=== PATIENT | male | born 1985 | race African-American/Black ===

== ENCOUNTER 2017-07-25 16:13 | Inpatient (IN) | payer OTHER ==
[2017-07-25 18:55] VITALS: BMI 25.7
--- NOTE | 2017-07-25 20:39 | HP ---
CIWA Score - CIWA Score Nausea/Vomitin-No Nausea/No Vomiting Admission ROS BHS - HPI Chief Complaint: alcohol withdrawal symptoms Allergies/Adverse Reactions: Allergies Allergy/AdvReac Type Severity Reaction Status Date / Time No Known Allergies Allergy Verified 10/19/16 19:29 History of Present Illness: 31 years old male with a long history of alcohol dependence is admitted to detox. Patient has never been in detox and reports insignificant period of abstinence. He has medical has medical history of asthma and denies suicidal ideation at this time. Patient states, " My goal is to be successful in detoxing." Exam Limitations: No Limitations - Ebola screening Have you traveled outside of the country in the last 21 days: No Have you had contact with anyone from an Ebola affected area: No Have you been sick,other than usual withdrawal symptoms: No Do you have a fever: No - Review of Systems Constitutional: Loss of Appetite, Malaise, Night Sweats, Changes in sleep EENT: reports: Other (stigmatism) Respiratory: reports: No Symptoms reported Cardiac: reports: No Symptoms Reported Patient History - Patient Medical History Hx Asthma: Yes Hx Chronic Obstructive Pulmonary Disease (COPD): No Hx Cardiac Disorders: No Hx Hypertension: No Hx Seizures: No Hx Diabetes: No Hx Gastrointestinal Disorders: No Hx Genitourinary Disorders: No Hx Sexually Transmitted Disorders: No Hx Renal Disease (ESRD): No Hx Depression: No Hx Suicide Attempt: No Hx Schizophrenia: No - Patient Surgical History Past Surgical History: No Hx Neurologic Surgery: No Hx Cataract Extraction: No Hx Cardiac Surgery: No Hx Lung Surgery: No Hx Breast Surgery: No Hx Breast Biopsy: No Hx Abdominal Surgery: No Hx Appendectomy: No Hx Cholecystectomy: No Hx Genitourinary Surgery: No Hx Section: No Hx Orthopedic Surgery: No Anesthesia Reaction: No - PPD History Previous Implant?: No Documented Results: Negative w/o proof Implanted On Prior [facility] Admission?: No - Smoking Cessation Smoking history: Current some day smoker Aproximately how many cigarettes per day: 3 Hx Chewing Tobacco Use: No Initiated information on smoking cessation: Yes - Substances Abused Alcohol Route: Oral Frequency: Daily Amount used: 1 liter may Age of first use: 13 Date of Last Use: 07/25/17 PCP Route: Smoking Frequency: Daily Amount used: $60 Age of first use: 25 Date of Last Use: 07/24/17 thc Route: Smoking Frequency: Daily Amount used: $40 Age of first use: 17 Date of Last Use: 07/25/17 Admission Physical Exam BHS - Vital Signs Vital Signs: Vital Signs - 24 hr 07/25/17 18:50 Temperature 97.7 F Pulse Rate 87 Respiratory 18 Rate Blood Pressure 122/68 BHS Breath Alcohol Content Breath Alcohol Content: 0 Urine Drug Screen - Results Drug Screen Negative: No Urine Drug Screen Results: THC-Marijuana, FUENTES-Cocaine, PCP-Phencyclidine
--- NOTE | 2017-07-25 21:02 | HP ---
CIWA Score - CIWA Score Nausea/Vomitin-Mild Nausea/No Vomiting Muscle Tremors: 3 Anxiety: 3 Agitation: 3 Paroxysmal Sweats: 1-Minimal Palms Moist Orientation: 0-Oriented Tacttile Disturbances: 1-Very Mild Itch/Numbness Auditory Disturbances: 0-None Visual Disturbances: 0-None Headache: 1-Very Mild CIWA-Ar Total Score: 13 Admission ROS BHS - HPI Chief Complaint: withdrawal sx Allergies/Adverse Reactions: Allergies Allergy/AdvReac Type Severity Reaction Status Date / Time No Known Allergies Allergy Verified 10/19/16 19:29 History of Present Illness: 31 years old male with long history of alcohol nicotine dependence has asthma and bipolar ii is admtted to detox Exam Limitations: No Limitations - Ebola screening Have you traveled outside of the country in the last 21 days: No Have you had contact with anyone from an Ebola affected area: No Have you been sick,other than usual withdrawal symptoms: No Do you have a fever: No - Review of Systems Constitutional: Loss of Appetite, Changes in sleep, Unintentional Wgt. Loss, Unexplained wgt Loss EENT: reports: Blurred Vision (eye glasses) Respiratory: reports: SOB with Exertion, Productive cough (yellowish) Cardiac: reports: No Symptoms Reported GI: reports: Nausea, Poor Appetite, Poor Fluid Intake, Abdominal cramping : reports: No Symptoms Reported Musculoskeletal: reports: No Symptoms Reported Integumentary: reports: No Symptoms Reported Neuro: reports: No Symptoms reported Endocrine: reports: No Symptoms Reported Hematology: reports: No Symptoms Reported Psychiatric: reports: Judgement Intact, Orientated x3, Anxious, Depressed Other Systems: Reviewed and Negative Patient History - Patient Medical History Hx Anemia: No Hx Asthma: Yes Hx Chronic Obstructive Pulmonary Disease (COPD): No Hx Cancer: No Hx Cardiac Disorders: No Hx Congestive Heart Failure: No Hx Hypertension: No Hx Hypercholesterolemia: No Hx Pacemaker: No HX Cerebrovascular Accident: No Hx Seizures: No Hx Dementia: No Hx Diabetes: No Hx Gastrointestinal Disorders: No Hx Liver Disease: No Hx Genitourinary Disorders: No Hx Sexually Transmitted Disorders: No Hx Renal Disease (ESRD): No Hx Thyroid Disease: No Hx Human Immunodeficiency Virus (HIV): No Hx Hepatitis C: No Hx Depression: Yes Hx Suicide Attempt: No Hx Bipolar Disorder: No Hx Schizophrenia: No - Patient Surgical History Past Surgical History: No Hx Neurologic Surgery: No Hx Cataract Extraction: No Hx Cardiac Surgery: No Hx Lung Surgery: No Hx Breast Surgery: No Hx Breast Biopsy: No Hx Abdominal Surgery: No Hx Appendectomy: No Hx Cholecystectomy: No Hx Genitourinary Surgery: No Hx Orthopedic Surgery: No - PPD History Previous Implant?: Yes Documented Results: Negative w/o proof Implanted On Prior [facility] Admission?: No PPD to be Administered?: Yes - Smoking Cessation Smoking history: Current some day smoker Have you smoked in the past 12 months: Yes Aproximately how many cigarettes per day: 3 Cigars Per Day: 0 Hx Chewing Tobacco Use: No Initiated information on smoking cessation: Yes 'Breaking Loose' booklet given: 07/25/17 - Substance & Tx. History Hx Alcohol Use: Yes Hx Substance Use: Yes Substance Use Type: Alcohol, Marijuana Hx Substance Use Treatment: No - Substances Abused Alcohol Route: Oral Frequency: Daily Amount used: 1 liter may Age of first use: 13 Date of Last Use: 07/25/17 PCP Route: Smoking Frequency: Daily Amount used: $60 Age of first use: 25 Date of Last Use: 07/24/17 thc Route: Smoking Frequency: Daily Amount used: $40 Age of first use: 17 Date of Last Use: 07/25/17 Family Disease History - Family Disease History Family Disease History: Other: Father (no contact), Mother (no contact), Brother (no contact), Sister (no contact) Admission Physical Exam BHS - Vital Signs Vital Signs: Vital Signs - 24 hr 07/25/17 18:50 Temperature 97.7 F Pulse Rate 87 Respiratory 18 Rate Blood Pressure 122/68 - Physical General Appearance: Yes: Appropriately Dressed, Mild Distress, Thin, Tremorous, Irritable, Sweating, Anxious HEENTM: Yes: Hearing grossly Normal, Normal ENT Inspection, Normocephalic, Normal Voice Respiratory: Yes: Chest Non-Tender, No Respiratory Distress, No Accessory Muscle Use, Wheezing Neck: Yes: Supple, Trachea in good position Breast: Yes: Breasts Symetrical Cardiology: Yes: Regular Rhythm, Regular Rate, S1, S2 Abdominal: Yes: Normal Bowel Sounds, Non Tender, Soft Genitourinary: Yes: Within Normal Limits Back: Yes: Normal Inspection Musculoskeletal: Yes: full range of Motion, Gait Steady Extremities: Yes: Normal Inspection, Normal Range of Motion, Non-Tender, Tremors Neurological: Yes: Fully Oriented, Alert, Motor Strength 5/5, Normal Response, Depressed Affect Integumentary: Yes: Warm Lymphatic: Yes: Within Normal Limits - Diagnostic (1) Alcohol dependence with uncomplicated withdrawal Current Visit: Yes Status: Acute (2) Nicotine dependence Current Visit: Yes Status: Acute Qualifiers: Nicotine product type: cigarettes Substance use status: in withdrawal Qualified Code(s): F17.213 - Nicotine dependence, cigarettes, with withdrawal (3) Asthma Current Visit: Yes Status: Chronic Qualifiers: Asthma severity: mild Asthma persistence: intermittent Asthma complication type: with status asthmaticus Qualified Code(s): J45.22 - Mild intermittent asthma with status asthmaticus (4) Weight loss Current Visit: Yes Status: Acute (5) Bipolar II disorder Current Visit: Yes Status: Suspected Cleared for Admission BHS - Detox or Rehab [facility] Level of Care: Medically Managed Detox Regimen/Protocol: Librium Claeared for Rehab Admission: Yes BHS Breath Alcohol Content Breath Alcohol Content: 0 Vital Signs - Vital Signs Vital Signs Refused: No Temperature: 97.9 F Temperature Source: Oral Pulse Rate: 87 Respiratory Rate: 18 Blood Pressure: 122/68 BP Location: Left Arm Blood Pressure Position: Sitting - Height Height: 6 ft 2 in - Weight Weight: 200 lb Weight Measurement Method: Standing Scale Body Mass Index (BMI): 25.7 - Bowel Function Bowel Movement: Yes Urine Drug Screen - Control Is Test Valid: Yes - Results Drug Screen Negative: No Urine Drug Screen Results: THC-Marijuana, FUENTES-Cocaine, PCP-Phencyclidine Inpatient Rehab Admission - Initial Determination Are CD services needed?: Yes Free of communicable disease: Yes Not in need of hospitalization: Yes - Rehab Admission Criteria Previous failed treatment: Yes Poor recovery environment: Yes Comorbidities: Yes Lacks judgement: No Patient is meeting Inpatient Rehab admission criteria:: Yes
[2017-07-25] MEDS ORDERED: MAG HYDROX/AL HYDROX/SIMETH 30 ML UNIT-DOSE CUP PO PRN (21:08)
[2017-07-25] MEDS ORDERED: MAGNESIUM CITRATE 300 ML BOTTLE PO PRN (21:08)
[2017-07-25] MEDS ORDERED: MAGNESIUM HYDROX 2400MG/30ML ORAL SUSPENSION 30 ML CUP PO PRN (21:08)
[2017-07-25] MEDS ORDERED: P-EPHED 60MG/TRIPROLIDI 2.5MG TABLET PO PRN (21:08)
[2017-07-25] MEDS ORDERED: MENTHOL/PHENOL 1 EACH UD MM PRN (21:08)
[2017-07-25] MEDS ORDERED: chlordiazePOXIDE HCL 25 MG CAPSULE PO PRN (21:08)
[2017-07-25] MEDS ORDERED: guaiFENesin/D-METHORPHAN HB 10 ML UNIT-DOSE CUPS PO PRN (21:08)
[2017-07-25] MEDS ORDERED: LOPERAMIDE HCL 2 MG CAPSULE PO PRN (21:08)
[2017-07-25] MEDS ORDERED: ACETAMINOPHEN 325 MG TABLET (FP) PO PRN (21:08)
[2017-07-26] MEDS: chlordiazePOXIDE HCL 25 MG CAPSULE PO SCH ×5 (00:19→23:13)
[2017-07-26] MEDS: THIAMINE HCL 100 MG TABLET (FP) PO SCH ×2 (00:20→23:13)
[2017-07-26 02:34] LABS: URINE APPEARANCE CLEAR; URINE BILIRUBIN NEGATIVE (NEGATIVE); URINE BLOOD NEGATIVE (NEGATIVE); URINE COLOR YELLOW; URINE GLUCOSE (UA) NEGATIVE (NEGATIVE); URINE KETONE TRACE (NEGATIVE); URINE LEUK ESTERASE NEGATIVE (NEGATIVE); URINE NITRITE NEGATIVE (NEGATIVE); URINE PROTEIN NEGATIVE (NEGATIVE); URINE UROBILINOGEN NEGATIVE mg/dL (0.2-1.0)
--- NOTE | 2017-07-26 09:18 | EKG ---
Test Reason : Blood Pressure : / mmHG Vent. Rate : 089 BPM Atrial Rate : 089 BPM P-R Int : 142 ms QRS Dur : 090 ms QT Int : 366 ms P-R-T Axes : 071 082 052 degrees QTc Int : 445 ms NORMAL SINUS RHYTHM NORMAL ECG NO PREVIOUS ECGS AVAILABLE Confirmed by YUMIKO JONES MD ([id number]) on 07/26/2017 9:18:29 AM Referred By: Confirmed By:YUMIKO JONES MD
[2017-07-26 10:09] LABS: HEMATOCRIT 41.1 % (35.4-49); HEMOGLOBIN 12.3 GM/dL (11.7-16.9); MCH 21.8 pg (25.7-33.7); MEAN CELL VOLUME 72.6 fl (80-96); MEAN PLT VOLUME 9.9 fl (7.5-11.1); PLATELET COUNT 188 K/MM3 (134-434); RBC 5.66 M/mm3 (4.00-5.60); RDW 14.8 % (11.9-15.9); WHITE BLOOD COUNT 6.1 K/mm3 (4.0-10.0)
[2017-07-26 10:22] LABS: ADD RBC MORPHOLOGY YES
[2017-07-26 10:27] LABS: CHLORIDE 105 mmol/L (98-107); POTASSIUM 3.6 mmol/L (3.5-5.1); SODIUM 140 mmol/L (136-145)
[2017-07-26] MEDS: PRENATAL VITAMINS W/ FOLIC ACID TABLET (FP) PO SCH (10:39)
[2017-07-26 10:42] LABS: ALBUMIN 3.7 g/dl (3.4-5.0); ALK PHOS 43 U/L (45-117); ANION GAP 6 (8-16); BILIRUBIN,TOTAL 0.5 mg/dL (0.2-1.0); BLOOD UREA NITROGEN 15 mg/dL (7-18); CALCIUM 8.5 mg/dL (8.5-10.1); CO2 29 mmol/L (21-32); CREATININE 1.4 mg/dL (0.7-1.3); GLUCOSE,RANDOM 96 mg/dL (74-106); SGOT/AST 13 U/L (15-37); SGPT/ALT 16 U/L (12-78); TOT PROT 6.4 g/dl (6.4-8.2)
--- NOTE | 2017-07-26 11:13 | CONSULT ---
[facility] Psychiatric Consult - Data Date of interview: 07/26/17 Admission source: [facility] Identifying data: First admission to [facility] for this 31 y/o AA male seeking detox treatment on for cocaine,cannabis,alcohol and phencyclidine dependence.Patient is single,a father of one,domiciled and reportedly self- employed. Substance Abuse History: Confirmed by patient in this interview.Refer to the current [facility] report for details : Smoking history: Current some day smoker. Have you smoked in the past 12 months: Yes. Aproximately how many cigarettes per day: 3. Cigars Per Day: 0. Hx Chewing Tobacco Use: No. Initiated information on smoking cessation: Yes. 'Breaking Loose' booklet given: . - Substance & Tx. History. Hx Alcohol Use: Yes. Hx Substance Use: Yes. Substance Use Type: Alcohol, Marijuana. Hx Substance Use Treatment: No. - Substances Abused. Alcohol. Route: Oral. Frequency: Daily. Amount used: 1 liter mya. Age of first use: 13. Date of Last Use: 07/25/17. PCP. Route: Smoking. Frequency: Daily. Amount used: $60. Age of first use: 25. Date of Last Use: 07/24/17. thc. Route: Smoking. Frequency: Daily. Amount used: $40. Age of first use: 17. Date of Last Use: 07/25/17 Medical History: Bronchial asthma. Psychiatric History: Patient denies history of psychiatric hospitalizations.He admits to the diagnosis of Schizoaffective Disorder made by a private psychiatrist in [facility].Prescribed adderall and remeron (?).Mr Stroud " has no idea " about the respective doses and has no recall of last intake of these medications.No recent contact with provider as per self-report.Patient behaves as a hostile,argumentative and irritable historian." You are disrupting my rest. " No reported history of suicide attempts. Physical/Sexual Abuse/Trauma History: Not discussed in this interview.Patient declines. Additional Comment: Urine Drug Screen Results: THC-Marijuana, FUENTES-Cocaine, PCP- Phencyclidine.Noted. Mental Status Exam - Mental Status Exam Alert and Oriented to: Time, Place, Person Cognitive Function: Good Mood: Withdrawn, Irritable Affect: Mood Congruent Patient Behavior: Passive, Fatigued, Uncooperative Speech Pattern: Clear Voice Loudness: Normal Thought Process: Goal Oriented Thought Disorder: Not Present Hallucinations: Denies Suicidal Ideation: Denies Homicidal Ideation: Denies Insight/Judgement: Poor Sleep: Poorly, Difficulty falling asleep Appetite: Good Muscle strength/Tone: Normal Gait/Station: Normal Psychiatric Findings - Problem List ([place] 1, 2,3) (1) Alcohol dependence with uncomplicated withdrawal Status: Acute (2) Phencyclidine dependence Status: Chronic (3) Marijuana dependence Status: Chronic (4) Nicotine dependence Status: Chronic Qualifiers: Nicotine product type: cigarettes Substance use status: in withdrawal Qualified Code(s): F17.213 - Nicotine dependence, cigarettes, with withdrawal (5) Substance induced mood disorder Status: Acute (6) Insomnia Status: Acute - Initial Treatment Plan Initial Treatment Plan: Psychoeducation.Detoxification.Sleep hygiene recommended (rejected by patient).Ambien 10 mg po hs prn.Side effects/benefits discussed with patient.Agrees with this careplan.Observation.Medications reconciliation : NO known medications.Contact established (with verbal authorization of patient) with [facility] # [id number] at [phone] : no scripts for remeron or adderall / no visit since October 2016.
[2017-07-26] MEDS ORDERED: PNEUMOC 13-VAL CONJ-DIP CRM/PF 0.5 ML DISP.SYRIN IM ONE (12:00)
[2017-07-26] MEDS ORDERED: FLU VACCINE QUAD 60 MCG/0.5 ML (MDV 17-18) IM ONE (12:00)
[2017-07-26] MEDS ORDERED: PNEUMOCOCCAL 23 VACCINE 0.5 ML VIAL IM ONE (12:00)
--- NOTE | 2017-07-26 12:10 | PN ---
S CIWA - CIWA Score Nausea/Vomitin Muscle Tremors: 3 Anxiety: 3 Agitation: 2 Paroxysmal Sweats: 3 Orientation: 2-Disoriented Date<2 days Tacttile Disturbances: 1-Very Mild Itch/Numbness Auditory Disturbances: 2-Mild Harshness/Frighten Visual Disturbances: 0-None Headache: 0-None Present CIWA-Ar Total Score: 19 BHS Progress Note (SOAP) Subjective: Nausea, Sweating, Stomach Cramping, Tremors, Interrupted Sleep, Fatigue. Objective: PT. A & O X 2 (UNCERTAIN ABOUT DAY / DATE). PT. OBSERVED AMBULATING ON UNIT. NO ACUTE DISTRESS. 07/26/17 12:07 Vital Signs Temperature 97.0 F L 07/26/17 10:00 Pulse Rate 93 H 07/26/17 10:00 Respiratory Rate 20 07/26/17 10:00 Blood Pressure 125/83 07/26/17 10:00 O2 Sat by Pulse Oximetry (%) Laboratory Tests 07/25/17 07/26/17 07/26/17 23:45 07:00 07:00 WBC 6.1 RBC 5.66 H Hgb 12.3 Hct 41.1 MCV 72.6 L MCH 21.8 L MCHC 30.0 L RDW 14.8 Plt Count 188 MPV 9.9 Sodium 140 Potassium 3.6 Chloride 105 Carbon Dioxide 29 Anion Gap 6 L BUN 15 Creatinine 1.4 H Creat Clearance w eGFR 59.92 Random Glucose 96 Calcium 8.5 Total Bilirubin 0.5 AST 13 L ALT 16 Alkaline Phosphatase 43 L Total Protein 6.4 Albumin 3.7 Urine Color Yellow Urine Appearance Clear Urine pH 5.0 Ur Specific [place] 1.030 Urine Protein Negative Urine Glucose (UA) Negative Urine Ketones Trace H Urine Blood Negative Urine Nitrite Negative Urine Bilirubin Negative Urine Urobilinogen Negative Ur Leukocyte Esterase Negative RPR Titer 07/26/17 07:00 WBC RBC Hgb Hct MCV MCH MCHC RDW Plt Count MPV Sodium Potassium Chloride Carbon Dioxide Anion Gap BUN Creatinine Creat Clearance w eGFR Random Glucose Calcium Total Bilirubin AST ALT Alkaline Phosphatase Total Protein Albumin Urine Color Urine Appearance Urine pH Ur Specific [place] Urine Protein Urine Glucose (UA) Urine Ketones Urine Blood Urine Nitrite Urine Bilirubin Urine Urobilinogen Ur Leukocyte Esterase RPR Titer Nonreactive LABS NOTED. HIV AB RESULT PENDING. 07/26/17 12:09 Assessment: 07/26/17 12:08 WITHDRAWAL SYMPTOMS. Plan: CONTINUE DETOX. INCREASE DAILY PO FLUID INTAKE.
[2017-07-26 15:36] LABS: ANISOCYTOSIS 1+; MACROCYTOSIS 0
[2017-07-27] MEDS: chlordiazePOXIDE HCL 25 MG CAPSULE PO SCH ×3 (05:59→16:48)
[2017-07-27] MEDS: PRENATAL VITAMINS W/ FOLIC ACID TABLET (FP) PO SCH (10:33)
--- NOTE | 2017-07-27 17:06 | PN ---
S CIWA - CIWA Score Nausea/Vomitin Muscle Tremors: 2 Anxiety: 4-Mod. Anxious/Guarded Agitation: 2 Paroxysmal Sweats: 3 Orientation: 0-Oriented Tacttile Disturbances: 2-Mild Itch/Numbness/Burn Auditory Disturbances: 0-None Visual Disturbances: 2-Mild Sensitivity Headache: 0-None Present CIWA-Ar Total Score: 18 S Progress Note (SOAP) Subjective: Nausea, Sweating, Tremors, H/A, Anxious. Objective: PT. A & O X 3, OBSERVED AMBULATING ON UNIT. NO ACUTE DISTRESS. 07/27/17 17:07 Vital Signs Temperature 97.9 F 07/27/17 13:58 Pulse Rate 103 H 07/27/17 13:58 Respiratory Rate 19 07/27/17 13:58 Blood Pressure 104/61 07/27/17 13:58 O2 Sat by Pulse Oximetry (%) Laboratory Tests 07/25/17 07/26/17 07/26/17 23:45 07:00 07:00 WBC 6.1 RBC 5.66 H Hgb 12.3 Hct 41.1 MCV 72.6 L MCH 21.8 L MCHC 30.0 L RDW 14.8 Plt Count 188 MPV 9.9 Hypochromia 0 Polychromasia 0 Poikilocytosis 0 Anisocytosis 1+ Microcytosis 3+ Macrocytosis 0 Sodium 140 Potassium 3.6 Chloride 105 Carbon Dioxide 29 Anion Gap 6 L BUN 15 Creatinine 1.4 H Creat Clearance w eGFR 59.92 Random Glucose 96 Calcium 8.5 Total Bilirubin 0.5 AST 13 L ALT 16 Alkaline Phosphatase 43 L Total Protein 6.4 Albumin 3.7 Urine Color Yellow Urine Appearance Clear Urine pH 5.0 Ur Specific [place] 1.030 Urine Protein Negative Urine Glucose (UA) Negative Urine Ketones Trace H Urine Blood Negative Urine Nitrite Negative Urine Bilirubin Negative Urine Urobilinogen Negative Ur Leukocyte Esterase Negative RPR Titer HIV 1&2 Antibody Screen HIV P24 Antigen 07/26/17 07/26/17 07:00 10:30 WBC RBC Hgb Hct MCV MCH MCHC RDW Plt Count MPV Hypochromia Polychromasia Poikilocytosis Anisocytosis Microcytosis Macrocytosis Sodium Potassium Chloride Carbon Dioxide Anion Gap BUN Creatinine Creat Clearance w eGFR Random Glucose Calcium Total Bilirubin AST ALT Alkaline Phosphatase Total Protein Albumin Urine Color Urine Appearance Urine pH Ur Specific [place] Urine Protein Urine Glucose (UA) Urine Ketones Urine Blood Urine Nitrite Urine Bilirubin Urine Urobilinogen Ur Leukocyte Esterase RPR Titer Nonreactive HIV 1&2 Antibody Screen Negative HIV P24 Antigen Negative LABS NOTED. Assessment: 07/27/17 17:07 WITHDRAWAL SYMPTOMS. Plan: CONTINUE DETOX.
[2017-07-27] MEDS: chlordiazePOXIDE 5 MG CAPSULE PO SCH (21:11)
[2017-07-27] MEDS: IBUPROFEN 400 MG TABLET (FP) PO PRN (21:11)
[2017-07-27] MEDS: THIAMINE HCL 100 MG TABLET (FP) PO SCH (21:11)
[2017-07-27] MEDS: ZOLPIDEM TARTRATE 10 MG TABLET (PARK CARE ONLY) PO PRN (22:19)
[2017-07-28] MEDS: chlordiazePOXIDE 5 MG CAPSULE PO SCH ×3 (06:05→18:31)
[2017-07-28] MEDS: PRENATAL VITAMINS W/ FOLIC ACID TABLET (FP) PO SCH (10:14)
--- NOTE | 2017-07-28 16:43 | PN ---
BHS Progress Note (SOAP) Subjective: Diarrhea, headache, interrupted sleep Objective: 07/28/17 16:41 Last Vital Signs Temp Pulse Resp BP Pulse Ox 97 F L 103 H 18 125/70 07/28/17 13:53 07/28/17 13:53 07/28/17 13:53 07/28/17 13:53 Laboratory Tests 07/25/17 07/26/17 07/26/17 23:45 07:00 07:00 WBC 6.1 RBC 5.66 H Hgb 12.3 Hct 41.1 MCV 72.6 L MCH 21.8 L MCHC 30.0 L RDW 14.8 Plt Count 188 MPV 9.9 Hypochromia 0 Polychromasia 0 Poikilocytosis 0 Anisocytosis 1+ Microcytosis 3+ Macrocytosis 0 Sodium 140 Potassium 3.6 Chloride 105 Carbon Dioxide 29 Anion Gap 6 L BUN 15 Creatinine 1.4 H Creat Clearance w eGFR 59.92 Random Glucose 96 Calcium 8.5 Total Bilirubin 0.5 AST 13 L ALT 16 Alkaline Phosphatase 43 L Total Protein 6.4 Albumin 3.7 Urine Color Yellow Urine Appearance Clear Urine pH 5.0 Ur Specific [place] 1.030 Urine Protein Negative Urine Glucose (UA) Negative Urine Ketones Trace H Urine Blood Negative Urine Nitrite Negative Urine Bilirubin Negative Urine Urobilinogen Negative Ur Leukocyte Esterase Negative RPR Titer HIV 1&2 Antibody Screen HIV P24 Antigen 07/26/17 07/26/17 07:00 10:30 WBC RBC Hgb Hct MCV MCH MCHC RDW Plt Count MPV Hypochromia Polychromasia Poikilocytosis Anisocytosis Microcytosis Macrocytosis Sodium Potassium Chloride Carbon Dioxide Anion Gap BUN Creatinine Creat Clearance w eGFR Random Glucose Calcium Total Bilirubin AST ALT Alkaline Phosphatase Total Protein Albumin Urine Color Urine Appearance Urine pH Ur Specific [place] Urine Protein Urine Glucose (UA) Urine Ketones Urine Blood Urine Nitrite Urine Bilirubin Urine Urobilinogen Ur Leukocyte Esterase RPR Titer Nonreactive HIV 1&2 Antibody Screen Negative HIV P24 Antigen Negative Labs noted: serum creatinine 1.4 Assessment: 07/28/17 16:42 Withdrawal symptoms Noted with pre renal azotemia Plan: Continue detox Pre renal azotemia: encouraged to drink lots of water
[2017-07-28] MEDS: THIAMINE HCL 100 MG TABLET (FP) PO SCH (22:19)
[2017-07-28] MEDS: ZOLPIDEM TARTRATE 10 MG TABLET (PARK CARE ONLY) PO PRN (22:20)
[2017-07-28] MEDS: chlordiazePOXIDE HCL 10 MG CAPSULE PO SCH (22:20)
[2017-07-29] MEDS: IBUPROFEN 400 MG TABLET (FP) PO PRN (00:31)
[2017-07-29] MEDS: chlordiazePOXIDE HCL 10 MG CAPSULE PO SCH ×2 (05:54→12:23)
[2017-07-29 09:37] VITALS: BP 106/79; PULSE 90; TEMP 96.6
[2017-07-29] MEDS: PRENATAL VITAMINS W/ FOLIC ACID TABLET (FP) PO SCH (10:02)
--- NOTE | 2017-07-29 12:13 | DS ---
[facility] Detox Discharge Summary Admission Date: 07/25/17 Discharge Date: 07/29/17 - History Present History: Alcohol Dependence, Cannabis Dependence, Pcp Dependence Pertinent Past History: Asthma - Physical Exam Results Vital Signs: Vital Signs Temperature 96.6 F L 07/29/17 09:36 Pulse Rate 90 07/29/17 09:36 Respiratory Rate 20 07/29/17 09:36 Blood Pressure 106/79 07/29/17 09:36 O2 Sat by Pulse Oximetry (%) Pertinent Admission Physical Exam Findings: Withdrawal symptoms Laboratory Tests 07/25/17 07/26/17 07/26/17 23:45 07:00 07:00 WBC 6.1 RBC 5.66 H Hgb 12.3 Hct 41.1 MCV 72.6 L MCH 21.8 L MCHC 30.0 L RDW 14.8 Plt Count 188 MPV 9.9 Hypochromia 0 Polychromasia 0 Poikilocytosis 0 Anisocytosis 1+ Microcytosis 3+ Macrocytosis 0 Sodium 140 Potassium 3.6 Chloride 105 Carbon Dioxide 29 Anion Gap 6 L BUN 15 Creatinine 1.4 H Creat Clearance w eGFR 59.92 Random Glucose 96 Calcium 8.5 Total Bilirubin 0.5 AST 13 L ALT 16 Alkaline Phosphatase 43 L Total Protein 6.4 Albumin 3.7 Urine Color Yellow Urine Appearance Clear Urine pH 5.0 Ur Specific [place] 1.030 Urine Protein Negative Urine Glucose (UA) Negative Urine Ketones Trace H Urine Blood Negative Urine Nitrite Negative Urine Bilirubin Negative Urine Urobilinogen Negative Ur Leukocyte Esterase Negative RPR Titer HIV 1&2 Antibody Screen HIV P24 Antigen 07/26/17 07/26/17 07:00 10:30 WBC RBC Hgb Hct MCV MCH MCHC RDW Plt Count MPV Hypochromia Polychromasia Poikilocytosis Anisocytosis Microcytosis Macrocytosis Sodium Potassium Chloride Carbon Dioxide Anion Gap BUN Creatinine Creat Clearance w eGFR Random Glucose Calcium Total Bilirubin AST ALT Alkaline Phosphatase Total Protein Albumin Urine Color Urine Appearance Urine pH Ur Specific [place] Urine Protein Urine Glucose (UA) Urine Ketones Urine Blood Urine Nitrite Urine Bilirubin Urine Urobilinogen Ur Leukocyte Esterase RPR Titer Nonreactive HIV 1&2 Antibody Screen Negative HIV P24 Antigen Negative Labs noted - Treatment Hospital Course: Detox Protocol Followed, Detoxed Safely, Responded well, Discharged Condition Good - Medication Discharge Medications: Ambulatory Orders NK [No Known Home Medication] 07/25/17 - Diagnosis (1) Prerenal azotemia Current Visit: Yes Status: Acute (2) Depression Current Visit: Yes Status: Chronic (3) Alcohol dependence with uncomplicated withdrawal Current Visit: Yes Status: Acute (4) Marijuana dependence Current Visit: Yes Status: Chronic (5) Nicotine dependence Current Visit: Yes Status: Chronic Qualifiers: Nicotine product type: cigarettes Substance use status: in withdrawal Qualified Code(s): F17.213 - Nicotine dependence, cigarettes, with withdrawal (6) Phencyclidine dependence Current Visit: Yes Status: Chronic (7) Asthma Current Visit: Yes Status: Chronic Qualifiers: Asthma severity: mild Asthma persistence: intermittent Asthma complication type: with status asthmaticus Qualified Code(s): J45.22 - Mild intermittent asthma with status asthmaticus (8) Bipolar II disorder Current Visit: Yes Status: Chronic - AMA Did Patient Leave Against Medical Advice: No (F/U with PCP in 1-2 weeks or sooner if warranted)
== END 2017-07-29 12:30 | disposition other institution (70) | DRG 775 ==
LOC: YASAS 16:13 → Y3N 20:19
PROVIDERS: ADMIT Internal Medicine; ATTEND Internal Medicine
PROC: HZ2ZZZZ Detoxification Services for Substance Abuse Treatment (ICD-10-PCS; principal; 2017-07-25)
DX: F10.230 Alcohol dependence with withdrawal, uncomplicated (principal); F12.20 Cannabis dependence, uncomplicated; F16.20 Hallucinogen dependence, uncomplicated; F17.213 Nicotine dependence, cigarettes, with withdrawal; F31.81 Bipolar II disorder; R79.89 Other specified abnormal findings of blood chemistry; J45.22 Mild intermittent asthma with status asthmaticus; G47.00 Insomnia, unspecified; R63.4 Abnormal weight loss; Z68.25 Body mass index [BMI] 25.0-25.9, adult
CPT/HCPCS: 36415; 80053; 81003; 85027; 86593; 87389; 90688; 90732; 93005; 93010; G0008; G0009

== ENCOUNTER 2017-07-29 12:34 | Inpatient (IN) | payer OTHER ==
--- NOTE | 2017-07-29 14:11 | HP ---
Psychiatrist Admission - Data Date of interview: 07/29/17 Admission source: 3N Identifying data: This is the first [facility] admission for this 31 years old single Black male, father of a 6 years old son, self-employed, domiciled. Medical History: Significant for bronchial asthma and scoliosis. Smokes 3 cigarettes daily Psychiatric History: Patient is irritable, superficially coopererative in providing information claiming that he needs to sleep. Reports that he has been seeing psychiatrist since the age of 11. Reports that he is diagnosed with ADHD and Bipolar Disorder. Reports history of 2 previous psychiatric hospitalizations both in [place] as a child. Denies receiving psychiatric outpatent services currently. Claims last time he saw a psychiatrist was a year ago. He said that he caught a charge and he was given the alternative either to see a psychiatrist or to go to long-term. Claims he chose to see a psychiatrist somewhere in [facility] and was prescribed Adderal. Reports that in the past , he has been on Abilify, Depakote, Risperdal, Zoloft, Adderal. Denies history of previous suicidal attempt. At present, reports feeling aggravated and sleeping poorly Allergies/Adverse Reactions: Allergies Allergy/AdvReac Type Severity Reaction Status Date / Time No Known Allergies Allergy Verified 10/19/16 19:29 Date of last physical exam: 07/25/17 Concur with the findings of this exam: Yes - Substance Abuse/Tx History Hx Alcohol Use: Yes Hx Substance Use: Yes Substance Use Type: Alcohol (Started drinking felice at age 13, consumes one liter daily. Last drank on 07/25/17), Marijuana (Started smoking marijuana at age 17, consumes $40 worth daily. Last Smoked on 07/25/17) Hx Substance Use Treatment: Yes (Began smokink pcp at 25, consumes $60 worth daily. Last smoked on 07/24/17) Mental Status Exam - Mental Status Exam Alert and Oriented to: Time, Place, Person Cognitive Function: Fair Patient Appearance: Well Groomed Mood: Irritable Affect: Appropriate Speech Pattern: Clear Voice Loudness: Normal Thought Process: Intact Thought Disorder: Not Present Hallucinations: Denies Suicidal Ideation: Denies Homicidal Ideation: Denies Insight/Judgement: Fair Sleep: Poorly Appetite: Good Muscle strength/Tone: Normal Gait/Station: Normal Psychiatric Findings - Problem List ([place] 1, 2,3) (1) Alcohol dependence Current Visit: Yes Status: Acute (2) Cannabis dependence Current Visit: Yes Status: Acute (3) Phencyclidine dependence Current Visit: Yes Status: Acute (4) Nicotine dependence Current Visit: No Status: Chronic Qualifiers: Nicotine product type: cigarettes Substance use status: in withdrawal Qualified Code(s): F17.213 - Nicotine dependence, cigarettes, with withdrawal (5) ADHD (attention deficit hyperactivity disorder) Current Visit: Yes Status: Chronic (6) Bipolar disorder Current Visit: Yes Status: Chronic (7) Asthma Current Visit: No Status: Chronic Qualifiers: Asthma severity: mild Asthma persistence: intermittent Asthma complication type: with status asthmaticus Qualified Code(s): J45.22 - Mild intermittent asthma with status asthmaticus (8) Scoliosis Current Visit: Yes Status: Acute - Initial Treatment Plan Initial Treatment Plan: 1) Start Belsomra 10 mg po HS prn for insomnia. 2) Monitor progress
[2017-07-29] MEDS ORDERED: LOPERAMIDE HCL 2 MG CAPSULE PO PRN (16:16)
[2017-07-29] MEDS ORDERED: MAGNESIUM HYDROX 2400MG/30ML ORAL SUSPENSION 30 ML CUP PO PRN (16:16)
[2017-07-29] MEDS ORDERED: MENTHOL/PHENOL 1 EACH UD MM PRN (16:16)
[2017-07-29] MEDS ORDERED: NICOTINE POLACRILEX 2 MG GUM BUC PRN (16:16)
[2017-07-29] MEDS ORDERED: P-EPHED 60MG/TRIPROLIDI 2.5MG TABLET PO PRN (16:16)
[2017-07-29] MEDS ORDERED: MAGNESIUM CITRATE 300 ML BOTTLE PO PRN (16:16)
[2017-07-29] MEDS ORDERED: guaiFENesin/D-METHORPHAN HB 10 ML UNIT-DOSE CUPS PO PRN (16:16)
[2017-07-29] MEDS ORDERED: IBUPROFEN 400 MG TABLET (FP) PO PRN (16:16)
[2017-07-29] MEDS ORDERED: MAG HYDROX/AL HYDROX/SIMETH 30 ML UNIT-DOSE CUP PO PRN (16:16)
--- NOTE | 2017-07-29 16:16 | HP ---
[facility] Rehab Assess/Revision - Admission History Admitted to Rehab from: [facility] Date of Admission to Rehab: 07/29/2017 - Vital signs Vital Signs: as per chart - Findings Detox History & Physical reviewed: Yes Concur with findings: Yes Inpatient Rehab Admission - Initial Determination Are CD services needed?: Yes Free of communicable disease: Yes Not in need of hospitalization: Yes - Rehab Admission Criteria Comorbidities: Yes Patient is meeting Inpatient Rehab admission criteria:: Yes
[2017-07-29] MEDS ORDERED: ALBUTEROL SO4 18 GM HFA INHALER IH PRN (16:17)
[2017-07-29] MEDS: THIAMINE HCL 100 MG TABLET (FP) PO SCH (21:15)
[2017-07-29] MEDS: hydrOXYzine PAMOATE 50 MG CAPSULE (FP) PO PRN (21:15)
[2017-07-29] MEDS ORDERED: SUVOREXANT 10 MG TABLET PO PRN (22:00)
[2017-07-30] MEDS: NICOTINE 14 MG/24 HOURS TOPICAL PATCH TD SCH (10:38)
[2017-07-30] MEDS: PRENATAL VITAMINS W/ FOLIC ACID TABLET (FP) PO SCH (10:38)
[2017-07-30] MEDS: THIAMINE HCL 100 MG TABLET (FP) PO SCH (21:53)
[2017-07-30] MEDS: hydrOXYzine PAMOATE 50 MG CAPSULE (FP) PO PRN (22:16)
[2017-07-31] MEDS: NICOTINE 14 MG/24 HOURS TOPICAL PATCH TD SCH ×2 (10:14→11:00)
[2017-07-31] MEDS: PRENATAL VITAMINS W/ FOLIC ACID TABLET (FP) PO SCH ×2 (10:14→10:58)
[2017-07-31] MEDS: THIAMINE HCL 100 MG TABLET (FP) PO SCH (22:15)
[2017-08-01] MEDS: hydrOXYzine PAMOATE 50 MG CAPSULE (FP) PO PRN ×2 (01:44→22:02)
[2017-08-01] MEDS: NICOTINE 14 MG/24 HOURS TOPICAL PATCH TD SCH (10:05)
[2017-08-01] MEDS: PRENATAL VITAMINS W/ FOLIC ACID TABLET (FP) PO SCH (10:05)
[2017-08-01] MEDS: ACETAMINOPHEN 325 MG TABLET (FP) PO PRN (10:06)
[2017-08-01] MEDS: THIAMINE HCL 100 MG TABLET (FP) PO SCH (22:01)
[2017-08-02] MEDS: PRENATAL VITAMINS W/ FOLIC ACID TABLET (FP) PO SCH (10:12)
[2017-08-02] MEDS: NICOTINE 14 MG/24 HOURS TOPICAL PATCH TD SCH (10:12)
[2017-08-02] MEDS: THIAMINE HCL 100 MG TABLET (FP) PO SCH (21:42)
[2017-08-02] MEDS: hydrOXYzine PAMOATE 50 MG CAPSULE (FP) PO PRN (21:42)
[2017-08-02] MEDS: ACETAMINOPHEN 325 MG TABLET (FP) PO PRN (23:42)
[2017-08-03 06:35] VITALS: BP 110/62; PULSE 75; TEMP 97.8
[2017-08-03] MEDS: PRENATAL VITAMINS W/ FOLIC ACID TABLET (FP) PO SCH (09:46)
[2017-08-03] MEDS: NICOTINE 14 MG/24 HOURS TOPICAL PATCH TD SCH (09:46)
== END 2017-08-03 18:50 | disposition left against medical advice (07) | DRG 770 ==
LOC: YASAS 12:34 → Y3W 12:35
PROVIDERS: ADMIT Psychiatry & Neurology Psychiatry; ATTEND Psychiatry & Neurology Psychiatry
PROC: HZ42ZZZ Group Counseling for Substance Abuse Treatment, Cognitive-Behavioral (ICD-10-PCS; principal; 2017-07-29)
DX: F10.20 Alcohol dependence, uncomplicated (principal); F16.20 Hallucinogen dependence, uncomplicated; F12.20 Cannabis dependence, uncomplicated; F17.213 Nicotine dependence, cigarettes, with withdrawal; F90.9 Attention-deficit hyperactivity disorder, unspecified type; F31.9 Bipolar disorder, unspecified; J45.22 Mild intermittent asthma with status asthmaticus; M41.9 Scoliosis, unspecified

== ENCOUNTER 2017-08-16 18:59 | Emergency (ER) | payer OTHER ==
[2017-08-16 19:05] VITALS: BP 119/59; PULSE 62; TEMP 98; BMI 21.8
[2017-08-16] MEDS ORDERED: TETANUS AND DIPHTHERIA TOXOID 0.5 ML DISP.SYRIN IM ONE (19:08)
--- NOTE | 2017-08-16 19:08 | PDOC ---
Rapid Medical Evaluation Chief Complaint: Bite Time Seen by Provider: 08/16/17 19:06 Medical Evaluation: Allergies Allergy/AdvReac Type Severity Reaction Status Date / Time No Known Allergies Allergy Verified 08/16/17 19:02 Vital Signs Temp Pulse Resp BP Pulse Ox 98.0 F 62 18 119/59 100 08/16/17 19:03 08/16/17 19:03 08/16/17 19:03 08/16/17 19:03 08/16/17 19:03 08/16/17 19:07 I have performed a brief in-person evaluation of this patient. The patient presents with a chief complaint of: bit by stray dog to Right hand. PT IS UNCOOPERATIVE Pertinent physical exam findings: I have ordered the following:tetanus booster The patient will proceed to the ED for further evaluation.
--- NOTE | 2017-08-16 20:21 | PDOC ---
History of Present Illness - General Chief Complaint: Bite Stated Complaint: DOG BITE Time Seen by Provider: 08/16/17 19:06 History Source: Patient Exam Limitations: No Limitations - History of Present Illness Initial Comments: CHIEF COMPLAINT: 31 y/o afebrile male c/o dog bite to right hand HISTORY OF PRESENT ILLNESS: The patient was petting his neighbor's pitbull when the dog suddenly bit his hand. He does not trust the neighbor and does not know if the dog is UTD on rabies vaccinations. Vital signs on arrival are within normal limits. REVIEW OF SYSTEMS: GENERAL/CONSTITUTIONAL: No fever/chills. No weakness. No weight change. MUSCULOSKELETAL: No joint or muscle swelling or pain. No neck or back pain. SKIN: +dog bit to right hand NEUROLOGIC: No headache, vertigo, loss of consciousness, or loss of sensation. PHYSICAL EXAM: GENERAL: The patient is awake, alert, and fully oriented, in no acute distress. EXTREMITIES: Normal range of motion. Puncture wound to dorsal surface of right hand that is actively bleeding. Small open linear abrasion to interdigital space between first and second digits of right hand. NEUROLOGICAL: Normal speech, normal gait. PSYCH: Normal mood, normal affect. SKIN: Warm, Dry, normal turgor, no rashes or lesions noted. Past History - Past Medical History Allergies/Adverse Reactions: Allergies Allergy/AdvReac Type Severity Reaction Status Date / Time No Known Allergies Allergy Verified 08/16/17 19:02 Home Medications: Ambulatory Orders Amox-Tr/K Cl [Augmentin - 875Mg Tablet] 1 tab PO BID #20 tablet 08/16/17 Naproxen 500 mg PO BID #10 tablet 08/16/17 Anemia: No Asthma: Yes Cancer: No Cardiac Disorders: No CVA: No COPD: No CHF: No DVT: No Dementia: No Diabetes: No GI Disorders: No Disorders: No HTN: No Hypercholesterolemia: No Kidney Stones: No Liver Disease: No Seizures: No Thyroid Disease: No - Surgical History Abdominal Surgery: No Appendectomy: No Cardiac Surgery: No Cholecystectomy: No Lung Surgery: No Neurologic Surgery: No Orthopedic Surgery: No - Reproductive History Testicular Surgery: No - Immunization History Immunization Up to Date: Yes - Suicide/Smoking/Psychosocial Hx Smoking Status: Yes Smoking History: Never smoked Have you smoked in the past 12 months: Yes Number of Cigarettes Smoked Daily: 3 Cigars Per Day: 0 Information on smoking cessation initiated: Yes 'Breaking Loose' booklet given: 07/25/17 Hx Alcohol Use: Yes Drug/Substance Use Hx: Yes Substance Use Type: Alcohol, Marijuana Hx Substance Use Treatment: Yes (Began smokink pcp at 25, consumes $60 worth daily. Last smoked on 07/24/17) *Physical Exam - Vital Signs Last Vital Signs Temp Pulse Resp BP Pulse Ox 98.0 F 62 18 119/59 100 08/16/17 19:03 08/16/17 19:03 08/16/17 19:03 08/16/17 19:03 08/16/17 19:03 Medical Decision Making - Medical Decision Making A/P: 31 y/o male with dog bite. Rabies status of dog unknown. Pt is UTD on tetanus. Plan is as follows: 1. Rabies vaccine 2. Rabies immunoglobulin 3. PO augmentin 4. PO naproxen The patient was advised to return on days 3, 7, 14 and 28 for full serious of rabies vaccines. Instructed him to take augmentin as prescribed, keep wound clean and return to the ER with any worsening or concerning symptoms. The patient verbalizes understanding of all instructions, has no further questions and is awaiting discharge. *DC/Admit/Observation/Transfer Diagnosis at time of Disposition: Dog bite of extremity - Discharge Dispostion Disposition: HOME Condition at time of disposition: Good - Prescriptions Prescriptions: Amox-Tr/K Cl [Augmentin - 875Mg Tablet] 1 tab PO BID #20 tablet Naproxen 500 mg PO BID #10 tablet - Referrals - Patient Instructions Printed Discharge Instructions: How to Care for a Domestic Animal Bite Additional Instructions: Discharge Instructions: -Take antibiotics as prescribed -Take Naproxen for pain with food if needed as prescribed -Ice your hand -Keep your wounds clean -Return to the ER on days 3, 7, 14 and 28 for full rabies vaccination series ( Saturday 08/19, Wednesday 08/23, Wednesday 08/30 and Wednesday 09/13) - Post Discharge Activity
[2017-08-16] MEDS ORDERED: RABIES VACCINE (PCEC)/PF 2.5 UNIT/VIAL IM ONE (20:22)
[2017-08-16] MEDS ORDERED: RABIES IMMUNE GLOBULIN 300 UNITS/2 ML VIAL IM ONE (20:22)
[2017-08-16] MEDS ORDERED: NAPROXEN 500 MG TABLET (FP) PO ONE (20:23)
[2017-08-16] MEDS ORDERED: AMOX TR/POT CLAV 875MG/125MG TABLETS (FP) PO ONE (20:23)
[2017-08-16] MEDS ORDERED: NAPROXEN 500 MG TABLET (FP) ONE (20:31)
[2017-08-16] MEDS ORDERED: AMOX TR/POT CLAV 875MG/125MG TABLETS (FP) ONE (20:31)
[2017-08-16] MEDS ORDERED: RABIES IMMUNE GLOBULIN 300 UNITS/2 ML VIAL ONE (20:31)
== END 2017-08-16 21:18 | disposition home or self-care (01) ==
LOC: JERFT 18:59
PROC: 3E0234Z Introduction of Serum, Toxoid and Vaccine into Muscle, Percutaneous Approach (ICD-10-PCS; principal; 2017-08-16)
PROC: 3E0234Z Introduction of Serum, Toxoid and Vaccine into Muscle, Percutaneous Approach (ICD-10-PCS; 2017-08-16)
DX: S61.451A Open bite of right hand, initial encounter (principal); W54.0XXA Bitten by dog, initial encounter; Y93.K9 Activity, other involving animal care; Y92.038 Other place in apartment as the place of occurrence of the external cause; Y99.8 Other external cause status
CPT/HCPCS: 90375; 90471; 90675; 96372; 99281-25

== ENCOUNTER 2019-10-03 14:28 | Observation (INO) | payer OTHER ==
--- NOTE | 2019-10-03 14:58 | PDOC ---
History of Present Illness - General Stated Complaint: FALL Time Seen by Provider: 10/03/19 14:58 History Source: Patient Exam Limitations: No Limitations - History of Present Illness Initial Comments: 34 year old male with PMH ADHD, DVT, bipolar disorder (off meds x1 month), asthma, scoliosis, marijuana use presented to ED for syncopal episode occurring x2 hours ago, BIBA. Pt reported he was walking down the street with his fiance, and suddenly syncopized, falling to the right onto a metal fence. The event was witnessed by the fiance, who reported he was not conscious for 5-8 minutes. Pt reported he awoke in the ambulance. Pt admitted to headache. Pt denied nausea, vomiting, chest pain, shortness of breath, abdominal pain, back pain, upper or lower extremity pain, visual changes, seizures, tremors. Pt denied drug use today, but reported he does intermittently smoke marijuana, he reported he does not believe today's symptoms are related to marijuana use. Pt denied hx of PE, surgery<4 weeks, active malignancy<6 months, hormone use, hemoptysis, travel> hours. Chart review revealed pt has history of PCP and ETOH abuse, but has not used either since 2017. ROS General: denied fever, chills, generalized weakness. HEENT: denied sore throat, rhinorrhea, ear pain. Cardiovascular: admitted to syncope. denied chest pain, palpitations, diaphoresis. Respiratory: denied shortness of breath, cough, sputum production, hemoptysis. Gastrointestinal: denied abdominal pain, nausea, vomiting, diarrhea, constipation, blood in stool. Genitourinary: denied dysuria, increased urinary frequency, hematuria, urinary incontinence, flank pain. Back: denied back pain. Musculoskeletal: denied joint pain, muscle pain, joint swelling. Neurological: denied headache, dizziness, numbness, tingling, weakness. Integumentary: denied rash, laceration, abrasion. Hematologic/Lymphatic: denied bruising or bleeding. PE Constitutional: Well-nourished, Well-developed, appearing stated age. Airway: intact Breathing: bilateral breath sounds Circulation: 2+ carotid pulse B/L HEENT: head is normocephalic, atraumatic. no scalp hematoma. no scalp laceration. right lower jaw bone tenderness to palpation. No torres sign. No raccoon eyes. EOMI. PERRLA. Neck: supple. Full ROM. no midline c-spine tenderness to palpation. No step offs. Cardiovascular: regular heart rhythm. no murmurs. no pericardial friction rub. Chest wall: No tenderness to palpation of anterior chest wall. No deformity to anterior chest wall. Respiratory: clear to auscultation bilaterally. no crackles, rhonchi or wheezing. no stridor. Gastrointestinal: soft, nontender. normal bowel sounds. no rebound, guarding, masses. No ecchymoses. Back: no midline T-spine or L-spine tenderness to palpation. No step offs. Pelvis: lower extremities equal in length without external rotation. No hip tenderness to palpation. Extremities: peripheral pulses intact. no lower extremity edema. Neurological: CN 2-12 grossly intact. moves all four extremities. Psych: awake, alert, oriented x3. follows commands. answers questions appropriately. Past History - Past Medical History Allergies/Adverse Reactions: Allergies Allergy/AdvReac Type Severity Reaction Status Date / Time No Known Allergies Allergy Verified 08/16/17 19:02 Home Medications: Ambulatory Orders Amox-Tr/K Cl [Augmentin - 875Mg Tablet] 1 tab PO BID #20 tablet 08/16/17 Naproxen 500 mg PO BID #10 tablet 08/16/17 - Reproductive History Testicular Surgery: No - Immunization History Immunization Up to Date: Yes - Psycho Social/Smoking Cessation Hx Smoking Status: Yes Smoking History: Never smoked Have you smoked in the past 12 months: Yes Number of Cigarettes Smoked Daily: 3 Cigars Per Day: 0 'Breaking Loose' booklet given: 07/25/17 Hx Alcohol Use: Yes Drug/Substance Use Hx: Yes Substance Use Type: Alcohol, Marijuana Hx Substance Use Treatment: Yes (Began smokink pcp at 25, consumes $60 worth daily. Last smoked on 07/24/17) ED Treatment Course - LABORATORY CBC & Chemistry Diagram: 10/03/19 16:05 10/03/19 16:05 Medical Decision Making - Medical Decision Making 34 year old male with above PMH presented to ED for syncopal episode occurring x2 hours ago. Initial Vital Signs Temp Pulse Resp BP Pulse Ox 98.6 F 86 18 121/78 100 10/03/19 14:28 10/03/19 14:28 10/03/19 14:28 10/03/19 14:28 10/03/19 14:28 Afebrile. No tachycardia. No tachypnea. No hypotension. No hypoxia on room air. Labs ordered: CBC, CMP, cardiac profile, Mg, d-dimer Imaging ordered: CXR, CT head, CT facial bones, CT cervical spine Medications ordered: normal saline bolus 500 cc once, tylenol IV Wells' Criteria for Pulmonary Embolism from [email or web address] on 10/03/2019 All calculations should be rechecked by clinician prior to use --RESULT SUMMARY: ---1.5 points ---Low risk group: 1.3% chance of PE in an ED population. Another study assigned scores ? 4 as PE Unlikely and had a 3% incidence of PE. INPUTS: -Clinical signs and symptoms of DVT > 0 = No -PE is #1 diagnosis OR equally likely > 0 = No -Heart rate > 100 > 0 = No -Immobilization at least 3 days OR surgery in the previous 4 weeks > 0 = No -Previous, objectively diagnosed PE or DVT > 1.5 = Yes -Hemoptysis > 0 = No -Malignancy w/ treatment within 6 months or palliative > 0 = No CXR my view: sharp costophrenic angles. no cardiomegaly. no infiltrate. no pulmonary vascular congestion. -Pending official report EKG performed at 1629: rate 70, regular rhythm, normal axis, normal intervals, QTc 410, no acute ST changes. 10/03/19 17:07 Laboratory Last Values WBC 8.2 K/mm3 (4.0-10.0) 10/03/19 16:05 RBC 6.57 M/mm3 (4.00-5.60) H 10/03/19 16:05 Hgb 15.2 GM/dL (11.7-16.9) 10/03/19 16:05 Hct 47.3 % (35.4-49) D 10/03/19 16:05 MCV 72.0 fl (80-96) L 10/03/19 16:05 MCH 23.1 pg (25.7-33.7) L 10/03/19 16:05 MCHC 32.1 g/dl (32.0-35.9) 10/03/19 16:05 RDW 14.9 % (11.9-15.9) 10/03/19 16:05 Plt Count 230 K/MM3 (134-434) D 10/03/19 16:05 MPV 9.6 fl (7.5-11.1) 10/03/19 16:05 Absolute Neuts (auto) 5.2 K/mm3 (1.5-8.0) 10/03/19 16:05 Neutrophils % 63.0 % (42.8-82.8) 10/03/19 16:05 Lymphocytes % 24.7 % (8-40) 10/03/19 16:05 Monocytes % 9.2 % (3.8-10.2) 10/03/19 16:05 Eosinophils % 2.4 % (0-4.5) 10/03/19 16:05 Basophils % 0.7 % (0-2.0) 10/03/19 16:05 Nucleated RBC % 0 % (0-0) 10/03/19 16:05 PT with INR 11.20 SEC (9.7-13.0) 10/03/19 16:05 INR 0.95 (0.83-1.09) 10/03/19 16:05 PTT (Actin FS) 34.3 SECONDS (25.2-36.5) 10/03/19 16:05 D-Dimer 224 ng/ml (0-500) 10/03/19 16:05 Sodium 138 mmol/L (136-145) 10/03/19 16:05 Potassium 4.6 mmol/L (3.5-5.1) 10/03/19 16:05 Chloride 103 mmol/L (98-107) 10/03/19 16:05 Carbon Dioxide 28 mmol/L (21-32) 10/03/19 16:05 Anion Gap 8 MMOL/L (8-16) 10/03/19 16:05 BUN 18.3 mg/dL (7-18) H 10/03/19 16:05 Creatinine 1.5 mg/dL (0.55-1.3) H 10/03/19 16:05 Est GFR (CKD-EPI)AfAm 70.38 10/03/19 16:05 Est GFR (CKD-EPI)NonAf 60.73 10/03/19 16:05 Random Glucose 80 mg/dL (74-106) 10/03/19 16:05 Calcium 10.2 mg/dL (8.5-10.1) H 10/03/19 16:05 Magnesium 2.2 mg/dL (1.8-2.4) 10/03/19 16:05 Total Bilirubin 0.5 mg/dL (0.2-1) 10/03/19 16:05 AST 27 U/L (15-37) 10/03/19 16:05 ALT 29 U/L (13-61) 10/03/19 16:05 Alkaline Phosphatase 54 U/L (45-117) 10/03/19 16:05 Creatine Kinase 383 U/L (26-308) H 10/03/19 16:05 Troponin I < 0.02 ng/ml (0.00-0.05) 10/03/19 16:05 Total Protein 8.6 g/dl (6.4-8.2) H 10/03/19 16:05 Albumin 4.8 g/dl (3.4-5.0) 10/03/19 16:05 10/03/19 18:43 CT Facial bones report: Comments: Parker Zepeda MD wrote on Oct 03, 2019 at 06:15 PM: Referring Physician: LUCIO URRUTIA Patient Name: SARAH GARRETT THIS IS A PRELIMINARY REPORT FROM IMAGING IMPERSONATOR CHARACTER EXAM: CT Face/facial bones without contrast IMAGES: 509 EXAM DATE AND TIME: 2019-10-03 17:03:54 REASON FOR EXAM: 34-year-old man fell on his face. COMPARISON: None. TECHNIQUE: Axial images were obtained, and coronal and sagittal images generated. FINDINGS: There are bilateral comminuted minimally displaced nasal bone fractures, with surrounding soft tissue swelling. There are no other fractures of the visualized facial bones or anterior skull base. The cribriform plates, orbital floors, lamina papyracea, orbital roofs, malar eminences and zygomatic arches are intact. The old right mandibular fracture seen on the prior study of 02/22/2012 is now completely healed. The mandibular bodies, rami, condyles and the temporomandibular joints all are intact. The paranasal sinuses are clear. Imaged portions of the brain appear grossly normal, without evidence of hemorrhage or contusion. IMPRESSION: Bilateral comminuted minimally displaced nasal bone fractures, with surrounding soft tissue swelling. The study is otherwise unremarkable. No other fractures of the visualized facial bones or anterior skull base. One or more of the following dose reduction techniques were used: automated exposure control, adjustment of the mA and/or kV according to patient size, use of iterative reconstructive technique. THIS DOCUMENT HAS BEEN ELECTRONICALLY SIGNED Parker Zepeda MD. 10/03/2019 18:14 ANA M Miller Please call [employer] Field Service Technician [phone]) with questions. Parker eZpeda MD CT head report: Comments: Parker Zepeda MD wrote on Oct 03, 2019 at 06:26 PM: Referring Physician: LUCIO URRUTIA Patient Name: SARAH GARRETT THIS IS A PRELIMINARY REPORT FROM IMAGING IMPERSONATOR CHARACTER EXAM: CT Head wo IMAGES: 240 EXAM DATE AND TIME: 2019-10-03 17:00:56 HISTORY: 34 year old man: Syncope. COMPARISON: None TECHNIQUE: Non-contrast axial images were obtained. Coronal and sagittal images were also generated. FINDINGS: There are bilateral comminuted minimally displaced nasal bone fractures, with surrounding soft tissue swelling. There are no other fractures of the calvarium, visualized facial bones or skull base There are no intracranial hemorrhages or brain parenchymal contusion injuries. The cerebral sulci and ventricles are normal in size. There are no intracranial hemorrhages, extra-axial fluid collections or evidence of an intra-axial mass lesion. There is no evidence of an acute or chronic ischemic lesion at this time. Orbital and petrous structures, cerebellopontine angles, and posterior fossa appear unremarkable. The paranasal and mastoid sinuses are clear. IMPRESSION: bilateral comminuted minimally displaced nasal bone fractures, with surrounding soft tissue swelling. The study is otherwise unremarkable. There are no other fractures of the calvarium, visualized facial bones or skull base. No intracranial hemorrhages, extra-axial fluid collections or intra-axial mass lesion. . One or more of the following dose reduction techniques were used: automated exposure control, adjustment of the mA and/or kV according to patient size, use of iterative reconstructive technique. THIS DOCUMENT HAS BEEN ELECTRONICALLY SIGNED 10/03/2019 18:26 ANA M Miller Please call [employer] Field Service Technician [phone]) with questions. Parker Zepeda MD Clinicians - Please contact [employer] Field Service Technician with further questions at [phone] ([phone]) Patients - Please contact your Ordering Provider with questions. Pt reported nasal bone fractures are old. Pt to be admitted for syncope - tele/obs. Discharge - Discharge Information Problems reviewed: Yes Clinical Impression/Diagnosis: Syncope Condition: Guarded Disposition: AGAINST MEDICAL ADVICE - Admission Yes - Follow up/Referral - Patient Discharge Instructions - Post Discharge Activity
[2019-10-03] MEDS ORDERED: SODIUM CHLORIDE 500 ML IV STA (15:28)
[2019-10-03] MEDS ORDERED: ACETAMINOPHEN 1000 MG/100 ML VIAL (NON FORMULARY) IVPB ONE (15:28)
--- NOTE | 2019-10-03 15:28 | PDOC ---
Attending Attestation - Resident Resident Name: Donna Patel - ED Attending Attestation I have performed the following: I have examined & evaluated the patient, The case was reviewed & discussed with the resident, I agree w/resident's findings & plan, Exceptions are as noted - HPI HPI: 10/03/19 15:27 34y M hx of bipolar disease, asthma presents with syncope. Patient states he was in his usual state of health this morning had a normal breakfast was ambulating in the street with his girlfriend when he suddenly syncopized, the next thing he remembers was arousing to EMS. Patient denies any preceding symptoms including feeling dizzy or lightheaded feeling out of breath feeling any chest pain, nausea vomiting abdominal pain, neck pain, back pain, headache, leg swelling, cough, hemoptysis, diarrhea, melena, dysuria, frequency. He has never had anything similar in the past. There is no known family history of cardiac disease or young unexplained deaths. Patient also endorses a history of DVT in the remote past but is unable to recall the circumstances. The girlfriend is in the room and states that she was with the patient whenever ambulating and saw him fall struck his head on a fence and was unconscious for several minutes. Denies seeing the patient be diaphoretic, without any obvious discomfort, no seizure-like activity, urinary or bowel incontinence. Social: Recreational marijuana use, alcohol use, denies any other recreational drug use - Physicial Exam PE: 10/03/19 16:11 GENERAL: The patient is awake, alert, and fully oriented, Nontoxic - in no acute distress. HEAD: Normocephalic, atraumatic. No hemotympanum no step-offs upon palpation of the scalp, negative torres sign, no tmj tenderness , mastoid tenderness, mild tendernes to R lower jaw, no malocclusion EYES: extraocular movements intact, sclera anicteric, conjunctiva clear. ENT: Normal voice, Moist mucous membranes. NECK: Normal range of motion, supple, no focal midline tenderness in the cervical thoracic or lumbar spine, LUNGS: Breath sounds equal, clear to auscultation bilaterally. No wheezes, no rhonchi, no rales. HEART: Regular rate and rhythm, normal S1 and S2 without murmur, rub or gallop. ABDOMEN: Soft, nontender, No guarding, no rebound. No CVA tenderness EXTREMITIES: Normal range of motion, no edema. moving all 4 extremities spontaneously and symmetrically without any focal bony tenderness NEUROLOGICAL: No facial assymetry, Normal speech, PSYCH: Normal mood, normal affect. SKIN: Warm, Dry, normal turgor, - Medical Decision Making 10/03/19 16:12 Differential for the patient's symptoms includes vasovagal episode, arrhythmia, anemia/metabolic derangements. Will give the patient fluids, will check basic blood work, EKG As patient has a questionable history of a DVT will obtain d-dimer -patient has no clinical signs or symptoms suggestive of DVT or PE We will continue monitoring the patient 10/03/19 17:27 pts labs reviewd cr slightly elevated at 1.5. previously was 1.4 pt will benefit from echo for further evaluation. will dw pt regarding admission vs outpatient mgmt Heart Score/ECG Review - ECG Impressions Comment:: 10/03/19 17:28 Twelve-lead EKG was performed and reviewed by me. There is normal sinus rhythm with a normal rate. Rate of 70 The axis is normal. The intervals are normal. There is normal R wave progression There are no ST or T wave abnormalities.
[2019-10-03 15:41] VITALS: TEMP 98.6; BMI 26.9
[2019-10-03] MEDS ORDERED: ACETAMINOPHEN INJECTION 100 ML IVPB ONE (16:05)
[2019-10-03 16:18] LABS: BASO % 0.7 % (0-2.0); EOS % 2.4 % (0-4.5); HEMATOCRIT 47.3 % (35.4-49); HEMOGLOBIN 15.2 GM/dL (11.7-16.9); LYMPH % 24.7 % (8-40); MCH 23.1 pg (25.7-33.7); MCHC 32.1 g/dl (32.0-35.9); MEAN PLT VOLUME 9.6 fl (7.5-11.1); MONO % 9.2 % (3.8-10.2); PLATELET COUNT 230 K/MM3 (134-434); RBC 6.57 M/mm3 (4.00-5.60); RDW 14.9 % (11.9-15.9); WHITE BLOOD COUNT 8.2 K/mm3 (4.0-10.0)
[2019-10-03 16:36] LABS: INR 0.95 (0.83-1.09); PROTHROMBIN TIME (PATIENT) 11.2 SEC (9.7-13.0)
[2019-10-03 16:39] LABS: ACTIVATED PTT 34.3 SECONDS (25.2-36.5)
[2019-10-03 16:59] LABS: ALBUMIN 4.8 g/dl (3.4-5.0); ALK PHOS 54 U/L (45-117); ANION GAP 8 MMOL/L (8-16); BILIRUBIN,TOTAL 0.5 mg/dL (0.2-1); BLOOD UREA NITROGEN 18.3 mg/dL (7-18); CALCIUM 10.2 mg/dL (8.5-10.1); CHLORIDE 103 mmol/L (98-107); CO2 28 mmol/L (21-32); CREATININE 1.5 mg/dL (0.55-1.3); GLUCOSE,RANDOM 80 mg/dL (74-106); MAGNESIUM 2.2 mg/dL (1.8-2.4); POTASSIUM 4.6 mmol/L (3.5-5.1); SGOT/AST 27 U/L (15-37); SGPT/ALT 29 U/L (13-61); SODIUM 138 mmol/L (136-145); TOT PROT 8.6 g/dl (6.4-8.2)
[2019-10-03] MEDS ORDERED: KETOROLAC TROMETHAMINE 30 MG/1 ML VIAL IVPUSH ONE (18:44)
[2019-10-03] MEDS ORDERED: PIPERACILLIN/TAZOB 3.375 GM 3.375 GM/50 ML BAG IVPB ONE (18:48)
[2019-10-03] MEDS ORDERED: KETOROLAC TROMETHAMINE 30 MG/1 ML VIAL ONE (18:48)
[2019-10-03 20:34] VITALS: BP 140/71; PULSE 88
--- NOTE | 2019-10-03 20:46 | HP ---
CHIEF COMPLAINT: syncope PCP:Dr. Almazan HISTORY OF PRESENT ILLNESS: 34 yo M PMH of Bipolar , Asthma, hx of DVT, scoliosis, hx of substance abuse presents to ED for syncope. Pt states he was walking on the sidewalk with his girlfriend and suddenly collapsed and lost consciousness. The pt states he woke up in the ambulance with a R sided headache and neck pain. Pt denies dizziness, CP , SOB. pt states this never happened in the past. pt denies alcohol use or marijuana use today. pt states that he has not taken his psych medications in 2 months as he has not seen a primary physician since he was [facility]. ER course was notable for: (1) head CT neg (2)face Ct (3) Recent Travel: denies PAST MEDICAL HISTORY: see HPI PAST SURGICAL HISTORY: nose, head jaw/ facial reconstruction surgery 2011 Social History: Smoking:denies Alcohol:social , once or 2x / month Drugs: marijuana Allergies No Known Allergies Allergy (Verified 08/16/17 19:02) HOME MEDICATIONS: Home Medications Medication Instructions Recorded Amox-Tr/K Cl [Augmentin - 875Mg 1 tab PO BID #20 tablet 08/16/17 Tablet] Naproxen 500 mg PO BID #10 tablet 08/16/17 REVIEW OF SYSTEMS CONSTITUTIONAL: Absent: fever, chills, diaphoresis, generalized weakness, malaise, loss of appetite, weight change HEENT: Present: nasal congestion, ear pain Absent: rhinorrhea, throat pain, throat swelling, difficulty swallowing, mouth swelling, eye pain, visual changes CARDIOVASCULAR: Absent: chest pain, syncope, palpitations, irregular heart rate, lightheadedness , peripheral edema RESPIRATORY: Absent: cough, shortness of breath, dyspnea with exertion, orthopnea, wheezing, stridor, hemoptysis GASTROINTESTINAL: Absent: abdominal pain, abdominal distension, nausea, vomiting, diarrhea, constipation, melena, hematochezia GENITOURINARY: Absent: dysuria, frequency, urgency, hesitancy, hematuria, flank pain, genital pain MUSCULOSKELETAL: Present : neck pain Absent: myalgia, arthralgia, joint swelling, back pain SKIN: Absent: rash, itching, pallor HEMATOLOGIC/IMMUNOLOGIC: Absent: easy bleeding, easy bruising, lymphadenopathy, frequent infections ENDOCRINE: Absent: unexplained weight gain, unexplained weight loss, heat intolerance, cold intolerance NEUROLOGIC: Present: headache Absent: focal weakness or paresthesias, dizziness, unsteady gait, seizure, mental status changes, bladder or bowel incontinence PSYCHIATRIC: Absent: anxiety, depression, suicidal or homicidal ideation, hallucinations. PHYSICAL EXAMINATION Vital Signs - 24 hr 10/03/19 10/03/19 14:28 20:33 Temperature 98.6 F Pulse Rate 86 Pulse Rate [ 88 Left Brachial] Respiratory 18 18 Rate Blood Pressure 121/78 Blood Pressure 140/71 [Left Arm] O2 Sat by Pulse 100 100 Oximetry (%) GENERAL: Awake, alert, and fully oriented, in no acute distress. HEAD: Normal with no signs of trauma. EYES: Pupils equal, round and reactive to light, extraocular movements intact EARS, NOSE, THROAT: Ears normal, TM intact B/l , oropharynx clear without exudates. Moist mucous membranes. NECK: pain when palpating R paraspinal, pain on rotation to R . LUNGS: Breath sounds equal, scattered wheezes b/l although good air entry. No accessory muscle use. HEART: Regular rate and rhythm, normal S1 and S2 without murmur, rub or gallop. ABDOMEN: Soft, nontender, not distended, normoactive bowel sounds, no guarding, no rebound, no masses. No hepatomegaly or splenomegaly. MUSCULOSKELETAL: Normal range of motion at all joints. No bony deformities or tenderness. No CVA tenderness. UPPER EXTREMITIES: 2+ pulses, warm, well-perfused. No cyanosis. No clubbing. No peripheral edema. LOWER EXTREMITIES: 2+ pulses, warm, well-perfused. No calf tenderness. No peripheral edema. NEUROLOGICAL: Cranial nerves II-XII intact. Normal speech. Normal gait. SKIN: Warm, dry, normal turgor, no rashes or lesions noted, normal capillary refill. Laboratory Last Values WBC 8.2 K/mm3 (4.0-10.0) 10/03/19 16:05 RBC 6.57 M/mm3 (4.00-5.60) H 10/03/19 16:05 Hgb 15.2 GM/dL (11.7-16.9) 10/03/19 16:05 Hct 47.3 % (35.4-49) D 10/03/19 16:05 MCV 72.0 fl (80-96) L 10/03/19 16:05 MCH 23.1 pg (25.7-33.7) L 10/03/19 16:05 MCHC 32.1 g/dl (32.0-35.9) 10/03/19 16:05 RDW 14.9 % (11.9-15.9) 10/03/19 16:05 Plt Count 230 K/MM3 (134-434) D 10/03/19 16:05 MPV 9.6 fl (7.5-11.1) 10/03/19 16:05 Absolute Neuts (auto) 5.2 K/mm3 (1.5-8.0) 10/03/19 16:05 Neutrophils % 63.0 % (42.8-82.8) 10/03/19 16:05 Lymphocytes % 24.7 % (8-40) 10/03/19 16:05 Monocytes % 9.2 % (3.8-10.2) 10/03/19 16:05 Eosinophils % 2.4 % (0-4.5) 10/03/19 16:05 Basophils % 0.7 % (0-2.0) 10/03/19 16:05 Nucleated RBC % 0 % (0-0) 10/03/19 16:05 PT with INR 11.20 SEC (9.7-13.0) 10/03/19 16:05 INR 0.95 (0.83-1.09) 10/03/19 16:05 PTT (Actin FS) 34.3 SECONDS (25.2-36.5) 10/03/19 16:05 D-Dimer 224 ng/ml (0-500) 10/03/19 16:05 Sodium 138 mmol/L (136-145) 10/03/19 16:05 Potassium 4.6 mmol/L (3.5-5.1) 10/03/19 16:05 Chloride 103 mmol/L (98-107) 10/03/19 16:05 Carbon Dioxide 28 mmol/L (21-32) 10/03/19 16:05 Anion Gap 8 MMOL/L (8-16) 10/03/19 16:05 BUN 18.3 mg/dL (7-18) H 10/03/19 16:05 Creatinine 1.5 mg/dL (0.55-1.3) H 10/03/19 16:05 Est GFR (CKD-EPI)AfAm 70.38 10/03/19 16:05 Est GFR (CKD-EPI)NonAf 60.73 10/03/19 16:05 Random Glucose 80 mg/dL (74-106) 10/03/19 16:05 Calcium 10.2 mg/dL (8.5-10.1) H 10/03/19 16:05 Magnesium 2.2 mg/dL (1.8-2.4) 10/03/19 16:05 Total Bilirubin 0.5 mg/dL (0.2-1) 10/03/19 16:05 AST 27 U/L (15-37) 10/03/19 16:05 ALT 29 U/L (13-61) 10/03/19 16:05 Alkaline Phosphatase 54 U/L (45-117) 10/03/19 16:05 Creatine Kinase 383 U/L (26-308) H 10/03/19 16:05 Creatine Kinase Index 0.3 % (0.0-5.0) 10/03/19 16:05 CK-MB (CK-2) 1.2 ng/mL (0.5-3.6) 10/03/19 16:05 Troponin I < 0.02 ng/ml (0.00-0.05) 10/03/19 16:05 Total Protein 8.6 g/dl (6.4-8.2) H 10/03/19 16:05 Albumin 4.8 g/dl (3.4-5.0) 10/03/19 16:05 ASSESSMENT/PLAN: 34 yo M PMH of Bipolar , Asthma, hx of DVT, scoliosis, hx of substance abuse presents to ED for syncope. Pt was evaluated, and was going to be admitted to telemetry. Spoke to patient about why he needed admission for further workup. pt left AMA before admission orders were placed. Visit type - Emergency Visit Emergency Visit: Yes ED Registration Date: 10/03/19 Care time: The patient presented to the Emergency Department on the above date and was hospitalized for further evaluation of their emergent condition. - New Patient This patient is new to me today: Yes Date on this admission: 10/04/19 - Critical Care Critical Care patient: No ATTENDING PHYSICIAN STATEMENT I saw and evaluated the patient. I reviewed the resident's note and discussed the case with the resident. I agree with the resident's findings and plan as documented. SUBJECTIVE: OBJECTIVE: ASSESSMENT AND PLAN:
--- NOTE | 2019-10-04 02:01 | PN ---
Teaching Attending Note Name of Resident: Anita Faustin ATTENDING PHYSICIAN STATEMENT Patient signed out AMA before I was able to assess him.
--- NOTE | 2019-10-05 09:52 | EKG ---
Test Reason : Blood Pressure : / mmHG Vent. Rate : 070 BPM Atrial Rate : 070 BPM P-R Int : 152 ms QRS Dur : 094 ms QT Int : 380 ms P-R-T Axes : 058 071 055 degrees QTc Int : 410 ms NORMAL SINUS RHYTHM WITH SINUS ARRHYTHMIA NORMAL ECG WHEN COMPARED WITH ECG OF 25-JUL-2017 23:14, NO SIGNIFICANT CHANGE WAS FOUND Confirmed by Lizeth Jackman ([id number]) on 10/05/2019 9:52:32 AM Referred By: Confirmed By:Lizeth Jackman
== END 2019-10-03 20:37 | disposition left against medical advice (07) ==
LOC: JER 14:28 → JERBED 17:42
PROVIDERS: ADMIT Internal Medicine; ATTEND Internal Medicine
PROC: 3E0333Z Introduction of Anti-inflammatory into Peripheral Vein, Percutaneous Approach (ICD-10-PCS; principal; 2019-10-03)
PROC: 3E033NZ Introduction of Analgesics, Hypnotics, Sedatives into Peripheral Vein, Percutaneous Approach (ICD-10-PCS; 2019-10-03)
PROC: 3E0337Z Introduction of Electrolytic and Water Balance Substance into Peripheral Vein, Percutaneous Approach (ICD-10-PCS; 2019-10-03)
DX: R55 Syncope and collapse (principal); F90.9 Attention-deficit hyperactivity disorder, unspecified type; F31.9 Bipolar disorder, unspecified; F12.90 Cannabis use, unspecified, uncomplicated; J45.909 Unspecified asthma, uncomplicated; M41.9 Scoliosis, unspecified; Z86.718 Personal history of other venous thrombosis and embolism; W18.39XA Other fall on same level, initial encounter; Y93.01 Activity, walking, marching and hiking; Y92.89 Other specified places as the place of occurrence of the external cause
CPT/HCPCS: 36415; 70450-TC; 70486-TC; 71045-TC-FY; 80053; 82550; 82553; 83735; 84484; 85025; 85379; 85610; 85730; 93005; 93010; 96361; 96374; 96375; 99285-25; G0378; J0131; J7030